=== PATIENT | female | born 2000 | race Caucasian/White ===

== ENCOUNTER 2022-09-02 09:37 | Outpatient (CLI) | payer MEDICAID, SELFPAY ==
--- NOTE | 2022-09-02 09:40 | W.PM.LAC.MC ---
Consult Note - Mom Date of Visit Date of visit: 09/02/22 food consultant: Chelsy Smith Visit Code: Visit Patient's Information Phone number: [phone] : 1 Para: 1 Work Plans: Returns to work at [employer] in October Delivery Information Delivery type: Vaginal Weeks Gestation: 39.3 Gestational Age: LGA Weight: 4.111 kg Discharge Weight: 3.657 kg Baby's Information Baby's Age at Visit: 8 days Baby's Provider or Clinic: Dr. Leung Jaundice: Yes (resolving) Reason for Consult Reason for Consult: pain with latching, using a nipple shield Past Experience Past Experience: No Current Frequency of Day Feedings: every 3 hours around the clock Both Breasts: No Suck: fairly strong Latch: fairly strong Length of Time: 15 - 25 minutes Pumping Pumping: Yes (uses the Haakaa on the side she doesn't nurse from) Quantity Pumped: 15 - 20 ml Supplementing EMB Supplement: Yes (baby gets 2 oz EBM or formula after every feeding) Formula Supplement: Yes Baby Elimination Number of Wet Diapers a Day: at least every feeding Number of BM a Day: at every feeding; yellow and seedy Breast/Nipple Condition Breast Information: WNL Engorgement: No Maternal Nipple Condition - Left: Flat Nipple Maternal Nipple Condition - Right: Flat Nipple Sore Nipples: No Onsite Pre-Feed weight: 3.846 kg Post-Feed weight: 3.868 kg Milk Transferred (mL): 22 Pre-Nursing Left Nipple: Within Normal Limits Pre-Nursing Right Nipple: Within Normal Limits Post-Nursing Left Nipple: Within Normal Limits Post-Nursing Right Nipple: Within Normal Limits Assessments/Interventions Assessments/Interventions: Met with mom and this now 8 day old ex- term LGA baby for consult.? Baby was born at [facility] but re-admitted to [facility] on 08/28 for PTX d/t an elevated bili of 18.0? During her admission mom nursed baby with a nipple shield and also supplemented with 2 oz formula after every nursing attempt.? Mom reports baby was seen on 08/31 and her TSB was WNL but she's still continued the same feeding plan.? She states that she nurses baby on one side while using the Haakaa on the other; gets 15 - 20 ml each time.? Reports that since D/C she's noticed a shooting pain up into her left axilla when baby nurses; has the same feeling with the pump but it's not as painful. Breasts WNL- rounded with symmetrical lower quadrants and the intramammary distance is < 1.5 inches.? Nipples are shorter but everted, flattening with compression; no damage noted.? Nipples are also not erythemic, scaly, or shiny.? Mom denies any signs of vasospasm, hx of milk blisters, or that nipples are itchy.? She reports the shooting pain she feels resolves after baby has finished nursing. Baby has gained 24 grams/day since her visit on 08/31 and is now 6% below BW at DOL 8.? Per mom she has equal ROM when turning her head and moving her extremities; she denies any caput/cephalohematoma at delivery.? Baby's palate is WNL.? Her upper frenulum is a little tight and her lower frenulum was a little hard to visualize.? She extends her tongue past the gum line when sucking on a finger and the tongue has good lateral movement.? She's jaundiced to her chest, but TSB on 08/31 = 13.9.? Mom attempted to latch baby to the left side without the nipple shield but was unsuccessful.? When she used the shield the latch seemed shallow and shortly after baby started suckling mom c/o shooting pain.? Baby was unlatched and with assistance mom latched her on again and it was deeper; mom reported increased comfort both at the nipple and up into her chest.? Baby nursed with stimulation for about 10 minutes and transferred 8 ml.? Mom then put baby on the right and using the ideas to get a deeper latch was able to get her on independently.? Baby nursed about 15 minutes and transferred 14 ml for a total of 22 ml.? Suspect the pain mom is feeling is d/t shallow latch. Plan: 1. Continue to nurse ALD but don't let her go past three hours for now.? Encouraged her to use the ideas above to get a wide latch, offer both sides at every feeding (keeping nursing sessions to no more than 30 minutes), work to keep her awake and nutritively suckling. 2. Stop using the Haakaa for now and pump with her electric (Medela) pump after as many feedings as possible (mom felt after every other feeding would work for her). 3. Continue to supplement after every feeding, but baby may need less than the 2 oz she was previously getting if mom offers both breasts at each nursing session. 4. F/U with PCP on 09/08 or 09/09 for a 2 week WCC.? I will f/u by phone on 09/12 to see if the pain with nursing has resolved.? Will also f/u after baby's 2 week visit to discuss weaning from the shield and a 1 month weight check. 5. Will fax note to Dr. High with the [facility]. 09/07/22 Addendum: Spoke with mom who states is going better- the pain she was having while nursing is resolving and she thinks it's b/c she's helping baby get a deeper latch. She's still using the nipple shield on the left but can sometimes nurse baby on the right without it. She's also pumping after nursing with her electric pump and thinks this is helping to increase her supply. She usually gets about 1 oz total and POC are giving this to baby. Will f/u with her by phone after baby's 2 week WCC next week to see if she'd like any f/u in .
== END 2022-09-02 09:38 | disposition home or self-care (01) ==
PROVIDERS: PCP Obstetrics & Gynecology; Visit Provider Obstetrics & Gynecology
DX: Z39.1 Encounter for care and examination of lactating mother (principal)
CPT/HCPCS: 99211

== ENCOUNTER 2022-11-10 23:58 | Emergency (ER) | payer MEDICAID, SELFPAY ==
[2022-11-11 00:17] VITALS: BP 130/87; PULSE 95; RESP 18; TEMP 36.7; O2SAT 99; BMI 36.3
--- NOTE | 2022-11-11 01:06 | CRLHL7_ITS ---
For Patients: As a result of the Century Cures Act, medical imaging exams and procedure reports are released immediately into your electronic medical record. You may view this report before your referring provider. If you have questions, please contact your health care provider. INDICATION: right upper quadrant pain TECHNIQUE: Ultrasound abdomen limited. Sonographic images of the right upper quadrant were obtained using loredo-scale and color Doppler images. COMPARISON: None FINDINGS: Study is limited due to large amount of overlying bowel gas. Liver: Suboptimal visualization normal in size and echotexture. No masses. No intrahepatic biliary dilatation. Gallbladder: No stones or sludge. Normal wall thickness. No pericholecystic fluid. Sonographic Patterson`s sign is positive. Common bile duct: 6 mm. Pancreas: Not visualized. Right kidney: Suboptimal visualization. Normal echotexture and cortex. No masses, stones, or hydronephrosis. Vasculature: Proximal abdominal aorta and IVC are normal. IMPRESSION: Limited study due to large amount of overlying bowel gas. No acute abnormality is identified although sonographic Patterson`s sign is positive. Dictated by Nicki Maldonado MD @ 11/11/2022 2:28:25 AM (Electronically Signed)
--- NOTE | 2022-11-11 01:09 | ED_ITS ---
HPI - Abdominal Pain General Chief Complaint: Abdominal Pain Stated Complaint: Abdominal Pain Time Seen by Provider: 11/11/22 00:05 Source: patient Mode of arrival: ambulatory Limitations: no limitations History of Present Illness HPI narrative: 21-year-old female, 2 months presents the emergency department with a 2 day history of abdominal pain. She did have a fever 2 days ago on, thought she might be getting a GI bug and tried taking some DayQuil. Rationale for that is unclear. Abdominal pain is located in the epigastric region initially, now more in the right upper quadrant, constant, dull and achy and is accompanied by nausea and vomiting. Last meal was 630 which is about 6 hours prior to presentation. She tried eating some chicken nuggets and caused increased nausea. Has not been using Tylenol, ibuprofen or other interventions to help with pain. Notes that hers started light colored, last bowel movement being about 12 hours ago. No blood in her stools, no prior history of similar symptoms. No prior known history of gallbladder disease. Positive family history of gallbladder disease. She is not breast-feeding. Past medical history benign per her report, no prior surgeries. No long-term medications, no allergies. Socially with no pertinent travel or toxic ingestion. ROS is notable for the generalized abdominal symptoms as above, otherwise negative times 15 systems. Related Data Home Medications Medication Instructions Recorded Confirmed No Known Home Medications 11/11/22 11/11/22 Allergies Allergy/AdvReac Type Severity Reaction Status Date / Time No Known Drug Allergies Allergy Verified 11/11/22 00:21 [facility] Medical History (Updated 11/11/22 @ 02:42 by Isabel Hawkins MD) No significant past medical history Surgical History (Updated 11/11/22 @ 01:19 by Ko Razo RN) No significant past surgical history Social History Smoking Status: Never smoker Do you use any of these nicotine containing products: None Second hand tobacco smoke exposure: No How often do you have a drink containing alcohol: never How often do you have six or more drinks on one occasion: Never AUDIT-C Alcohol total score: 0 Non-prescribed substance use: denies use Exam Const: Vital Signs, click to edit/add: Vital Signs - 24 hr 11/11/22 00:17 11/11/22 01:32 Temperature 98.0 F Pulse Rate 98 Pulse Rate [Right Pulse Oximeter] 95 Respiratory Rate 18 18 Blood Pressure 110/57 L Blood Pressure [Ri ght Upper Arm] 130/87 Pulse Oximetry 99 98 Oxygen Delivery Me thod Room Air Documenting provider has reviewed patient's vital signs: yes Common normals: no apparent distress General appearance: cooperative and comfortable HENMT: Common normals: normocephalic Head and scalp: normocephalic Mouth: oral and palatal mucosa normal Throat: posterior oropharynx normal Eye: Common normals: conjunctivae normal General eye: normal appearance of both eyes Conjunctiva: conjunctiva(e) normal Neck & C-Spine: Common normals: no lymphadenopathy Resp: Common normals: normal respiratory effort, no use of accessory muscles and clear to auscultation bilaterally Effort & inspection: able to speak in complete sentences Auscultation: clear to auscultation bilaterally Cardio: Common normals: regular rate, regular rhythm, S1 normal heart sound, S2 normal heart sound and no murmurs Rate: regular rate Rhythm: regular rhythm Heart sounds: S1 normal and S2 normal GI: Other: Abdomen obese but soft. Appears nondistended. Bowel sounds are normoactive in all 4 quadrants. Moderately tender with no guarding to the right upper quadrant only. No mass. : Common normals: no CVA tenderness Bladder/kidney exam: no CVA tenderness Back & Pelvis: Common normals: no CVA tenderness Extremity: Common normals: normal to inspection and normal capillary refill Psych: Common normals: mental status grossly normal, thought process normal and cooperative Thought process: normal thought process Insight: insight good Skin: Common normals: no rashes or lesions noted General skin exam: no rashes or lesions noted Course Vital Signs Vital signs: Initial Vital Signs Temperature 98.0 F 11/11/22 00:17 Temperature Source Temporal Artery Scan 11/11/22 00:17 Pulse Rate 95 11/11/22 00:17 Respiratory Rate 18 11/11/22 00:17 Blood Pressure 130/87 11/11/22 00:17 Blood Pressure Mean 101 11/11/22 00:17 Blood Pressure Position Supine 11/11/22 00:17 Pulse Oximetry 99 11/11/22 00:17 Oxygen Delivery Method 11/11/22 00:17 Vital Signs Temperature 98.0 F 11/11/22 00:17 Pulse Rate 95 11/11/22 00:17 Respiratory Rate 18 11/11/22 00:17 Blood Pressure 130/87 11/11/22 00:17 Pulse Oximetry 99 11/11/22 00:17 Oxygen Delivery Method 11/11/22 00:17 Temperature 98.0 F 11/11/22 00:17 Pulse Rate 98 11/11/22 01:32 Respiratory Rate 18 11/11/22 01:32 Blood Pressure 110/57 L 11/11/22 01:32 Pulse Oximetry 98 11/11/22 01:32 Oxygen Delivery Method 11/11/22 00:17 MDM - Abdominal Pain MDM Narrative Medical decision making narrative: Differential diagnosis including pancreatitis, gastroenteritis, gallbladder disease, colitis, gallstones, gastritis. Most likely etiology is cholecystitis based on nausea vomiting fever and localized tenderness. Counseled patient on differential diagnosis. Recommend ultrasound, labs. IV will be placed Zofran and morphine will be given for pain. Awaiting results, will likely need surgical consult if cholecystitis. Update: Labs are reassuring. Pain and nausea did improve with interventions. Discussed possibility of biliary dyskinesia. Since there is no significant elevation in bilirubin, no abnormal pancreatic enzymes, leukocytosis or markedly elevated CRP, I do not recommend further workup at this time. Recommend bland diet, episode will likely be self limited. Did give a single dose of simethicone to see if this would also help with symptoms. Alarm symptoms reviewed as indications for further workup. Recommend conservative management for now and follow-up for HIDA scan if symptoms persist. Okay to use Tylenol and/or ibuprofen as needed. Lab Data Attestation: I reviewed the patient's lab results. Labs: Lab Results 11/11/22 11/11/22 11/11/22 Range/Units 01:06 01:12 01:12 WBC 9.85 (4.50-11.00) K/uL RBC 5.00 (4.00-5.20) m/uL Hgb 14.1 (12.0-16.0) gm/dL Hct 43.0 (33.0-51.0) % MCV 86 (80-100) fL MCH 28 (26-34) pg MCHC 33 (32-36) gm/dL RDW Coeff of Martin 13.0 (11.5-15.5) % Plt Count 334 (140-440) K/uL Neut % (Auto) 58.3 (42.0-72.0) % Lymph % (Auto) 26.7 (20-44) % Dauphin % (Auto) 9.6 (0.0-11.0) % Eos % (Auto) 5.1 (0.0-7.0) % Baso % (Auto) 0.1 (0.0-3.0) % Neut # (Auto) 5.74 (1.7-7.0) K/uL Lymph # (Auto) 2.63 (0.90-2.90) K/uL Dauphin # (Auto) 0.90 (0.00-0.90) K/UL Eos # (Auto) 0.50 (0.00-0.50) K/uL Baso # (Auto) 0.01 (0.00-0.30) K/uL Sodium 143 (135-149) mmol/L Potassium 4.0 (3.6-5.1) mmol/L Chloride 106 (96-114) mmol/L Carbon Dioxide 27 (20-32) mmol/L BUN 13 (5-24) mg/dL Creatinine 0.6 (0.5-1.5) mg/dL Estimated Creat Clear 140.01 Estimated GFR 132 ml/min Glucose 99 (60-115) mg/dL Calcium 9.4 (8.4-10.6) mg/dL Total Bilirubin 0.6 (0.1-1.5) mg/dL AST 30 (12-35) U/L ALT 42 H (4-35) U/L Alkaline Phosphatase 96 (40-150) U/L C-Reactive Protein 1.2 H (0.5-1.0) mg/dL Total Protein 7.7 (6.0-8.3) g/dL Albumin 4.8 (3.3-5.0) g/dL Lipase 94 (23-300) U/L HCG, Qual (Negative) SARS-CoV-2 (PCR) Negative SARS-CoV-2 (Negative) 11/11/22 Range/Units 01:16 WBC (4.50-11.00) K/uL RBC (4.00-5.20) m/uL Hgb (12.0-16.0) gm/dL Hct (33.0-51.0) % MCV (80-100) fL MCH (26-34) pg MCHC (32-36) gm/dL RDW Coeff of Martin (11.5-15.5) % Plt Count (140-440) K/uL Neut % (Auto) (42.0-72.0) % Lymph % (Auto) (20-44) % Dauphin % (Auto) (0.0-11.0) % Eos % (Auto) (0.0-7.0) % Baso % (Auto) (0.0-3.0) % Neut # (Auto) (1.7-7.0) K/uL Lymph # (Auto) (0.90-2.90) K/uL Dauphin # (Auto) (0.00-0.90) K/UL Eos # (Auto) (0.00-0.50) K/uL Baso # (Auto) (0.00-0.30) K/uL Sodium (135-149) mmol/L Potassium (3.6-5.1) mmol/L Chloride (96-114) mmol/L Carbon Dioxide (20-32) mmol/L BUN (5-24) mg/dL Creatinine (0.5-1.5) mg/dL Estimated Creat Clear Estimated GFR ml/min Glucose (60-115) mg/dL Calcium (8.4-10.6) mg/dL Total Bilirubin (0.1-1.5) mg/dL AST (12-35) U/L ALT (4-35) U/L Alkaline Phosphatase (40-150) U/L C-Reactive Protein (0.5-1.0) mg/dL Total Protein (6.0-8.3) g/dL Albumin (3.3-5.0) g/dL Lipase (23-300) U/L HCG, Qual Negative (Negative) SARS-CoV-2 (PCR) (Negative) Imaging Data Abdominal ultrasound: My impression: No obvious obstructing stones or thickened gallbladder wall but difficult study due to bowel gas Radiologist's impression: IMPRESSION: Limited study due to large amount of overlying bowel gas. No acute abnormality is identified although sonographic Patterson`s sign is positive. Discharge Plan Discharge Clinical Impression: Abdominal gas pain Patient Disposition: Home w/ Parent or Adult Condition: Improved Instructions: Gas and Bloating (ED) Additional Instructions: As we discussed, I still think that your pain could be related to your gallbladder. There were no signs of a gallbladder infection or a gallstone today. These are the most emergent problems. A more common problem is something called biliary dyskinesia which is a malfunctioning gallbladder. These can be very common especially after childbirth but tend to resolve on their own. Try to avoid fatty foods for the next few weeks. If you continue to have episodes, please see your primary care doctor and request a HIDA scan. This can help us look at the gallbladder function more closely. For most people, these episodes resolved with no further problems. We do see a lot of gas on the ultrasound, this could certainly explain your symptoms too. I have given you a dose of gas medication, this is available [id number] as well. This will help break up some of the bubbles and allow you to pass the more easily. It is okay to take Tylenol and/or ibuprofen for pain as well. Eat a soft, bland diet and avoid alcohol for the next few days. Drink plenty of fluids. If you start running high fevers, and or your pain worsens significantly, please come back to the emergency department. Since there were no signs of infection, liver abnormalities or pancreas abnormalities in your blood work, this is all very reassuring. Activity Level: No Restrictions Discharge Diet: Regular Prescriptions: No Action No Known Home Medications Follow Up/Referrals: Jennifer Salgado MD [Staff Physician] - Stand Alone Forms: [employer] Info Instructions
[2022-11-11] MEDS: ONDANSETRON 2 MG/ML inj 4 MG IVP (01:15)
[2022-11-11] MEDS: MORPHINE 4 MG/ML INJ IVP (01:17)
[2022-11-11 01:20] VITALS: O2SAT 98
[2022-11-11 01:28] LABS: Basophils Absolute Auto 0.01 K/uL (0.00-0.30); Basophils Percent Auto 0.1 % (0.0-3.0); Eosinophils Percent Auto 5.1 % (0.0-7.0); Hemoglobin* 14.1 gm/dL (12.0-16.0); Immature Granulocytes Abs Auto 0.02 K/uL (0.00-0.30); Immature Granulocytes Pct Auto 0.2 %; Lymphocytes Absolute Auto 2.63 K/uL (0.90-2.90); Lymphocytes Percent Auto 26.7 % (20-44); Mean Corpuscular HGB Conc 33 gm/dL (32-36); Mean Corpuscular Hemoglobin 28 pg (26-34); Mean Corpuscular Volume 86 fL (80-100); Monocytes Percent Auto 9.6 % (0.0-11.0); Neutrophils Absolute Auto 5.74 K/uL (1.7-7.0); Neutrophils Percent Auto 58.3 % (42.0-72.0); Platelet Count* 334 K/uL (140-440); White Blood Count* 9.85 K/uL (4.50-11.00)
[2022-11-11 01:32] VITALS: BP 110/57; PULSE 98; RESP 18; O2SAT 98
[2022-11-11 01:32] LABS: Slide Review Reflex No
[2022-11-11 01:41] LABS: Albumin* 4.8 g/dL (3.3-5.0); Chloride* 106 mmol/L (96-114); Sodium* 143 mmol/L (135-149)
[2022-11-11 01:44] LABS: Bilirubin Total* 0.6 mg/dL (0.1-1.5); Creatinine* 0.6 mg/dL (0.5-1.5); Est. Creatinine Clearance* 140.01; Estimated Glomerular Filt Rate 132 ml/min
[2022-11-11 01:45] LABS: Alanine Aminotransferase* 42 U/L (4-35); Alkaline Phosphatase* 96 U/L (40-150); Aspartate Amino Transferase* 30 U/L (12-35); Blood Urea Nitrogen* 13 mg/dL (5-24); Calcium* 9.4 mg/dL (8.4-10.6); Carbon Dioxide* 27 mmol/L (20-32); Glucose* 99 mg/dL (60-115); Lipase* 94 U/L (23-300); Total Protein* 7.7 g/dL (6.0-8.3)
[2022-11-11 01:48] LABS: C Reactive Protein* 1.2 mg/dL (0.5-1.0)
[2022-11-11 01:54] LABS: HCG Qualitative Serum* Negative (Negative)
[2022-11-11 02:01] VITALS: BP 113/80; PULSE 99; RESP 18; O2SAT 96
[2022-11-11 02:05] LABS: SARS PCR* Negative SARS-CoV-2 (Negative)
[2022-11-11] MEDS: SIMETHICONE 80 MG TAB.CHEW 160 MG PO (02:09)
[2022-11-11 02:32] VITALS: BP 114/72; PULSE 88; RESP 18; O2SAT 98
[2022-11-11 02:53] VITALS: BP 130/87; PULSE 95; RESP 18; TEMP 36.7
== END 2022-11-11 02:53 | disposition home or self-care (01) ==
PROVIDERS: Emergency Provider Family Medicine
DX: R14.1 Gas pain (principal); R10.9 Unspecified abdominal pain
CPT/HCPCS: 36415; 76705; 80053; 83690; 84703; 85025; 86140; 87635; 94761; 96374; 96375; 99283; 99284; A9270; J2270; J2405

== ENCOUNTER 2023-01-27 16:33 | Outpatient (CLI) | payer MEDICAID, SELFPAY | END 2023-01-27 16:34 | disposition home or self-care (01) | PROVIDERS: Visit Provider Registered Nurse | DX: Z01.419 Encounter for gynecological examination (general) (routine) without abnormal findings (principal); E66.9 Obesity, unspecified; R53.83 Other fatigue; R63.5 Abnormal weight gain; F41.9 Anxiety disorder, unspecified; N91.2 Amenorrhea, unspecified; R45.86 Emotional lability; Z13.6 Encounter for screening for cardiovascular disorders; Z13.1 Encounter for screening for diabetes mellitus | CPT/HCPCS: 80061; 82306; 82670; 82947; 83001; 83498; 84146; 84403; 84443; 84703 ==

== ENCOUNTER 2024-09-23 12:02 | Outpatient (CLI) | payer MEDICAID, SELFPAY ==
--- NOTE | 2024-09-23 12:15 | CRLHL7_ITS ---
For Patients: As a result of the Cures Act, medical imaging exams and procedure reports are released immediately into your electronic medical record. You may view this report before your referring provider. If you have questions, please contact your health care provider. INDICATION: First trimester scan, establish dates. COMPARISON: None. TECHNIQUE: Real-time loredo-scale imaging of the pelvis was performed. FINDINGS: Sonographic imaging demonstrates a single living intrauterine gestation. The embryo demonstrates a regular cardiac rate measuring 178 beats per minute. The embryo`s crown-rump length measurement of 2.3 cm corresponds to a gestational age of 9 weeks 0 days with a sonographic due date of 04/28/2025. There is a normal-appearing yolk sac. There are no gross abnormalities noted within the embryo at this early state of development. The gestational sac has a normal appearance. There is no evidence of a perigestational hemorrhage. The amount of fluid within the sac appears appropriate for gestational age. The cervix is closed. The myometrium appears normal. The ovaries are of normal size. Corpus luteal cyst right ovary measures 2.9 x 2.3 x 2.7 cm. There are no suspicious fluid collections noted in the cul-de-sac. IMPRESSION: Normal first trimester OB ultrasound exam. Gestational age calculated at 9 weeks 0 days with a sonographic due date of 04/28/2025. Dictated by Dio Flynn MD @ 09/23/2024 12:53:25 PM (Electronically Signed)
== END 2024-09-23 12:03 | disposition home or self-care (01) ==
LOC: US 12:02
PROVIDERS: Visit Provider Physician Assistant
DX: Z34.91 Encounter for supervision of normal pregnancy, unspecified, first trimester (principal); Z3A.09 9 weeks gestation of pregnancy
CPT/HCPCS: 76817

== ENCOUNTER 2024-09-23 13:40 | Outpatient (CLI) | payer MEDICAID, SELFPAY | END 2024-09-23 13:41 | disposition home or self-care (01) | PROVIDERS: Visit Provider Advanced Practice Midwife | DX: Z34.91 Encounter for supervision of normal pregnancy, unspecified, first trimester (principal); Z3A.09 9 weeks gestation of pregnancy | CPT/HCPCS: 86592; 86703; 86704; 86706; 86762; 86787; 86803; 86850; 86900; 86901; 87086; 87340 ==

== ENCOUNTER 2024-12-05 09:00 | Outpatient (CLI) | payer MEDICAID, SELFPAY | END 2024-12-05 09:01 | disposition home or self-care (01) | LOC: US 09:01 | PROVIDERS: Visit Provider Advanced Practice Midwife | DX: Z34.92 Encounter for supervision of normal pregnancy, unspecified, second trimester (principal); O35.BXX0 Maternal care for other (suspected) fetal abnormality and damage, fetal cardiac anomalies, not applicable or unspecified; O35.8XX0 Maternal care for other (suspected) fetal abnormality and damage, not applicable or unspecified; Z3A.20 20 weeks gestation of pregnancy | CPT/HCPCS: 76805 ==

== ENCOUNTER 2024-12-19 09:00 | Outpatient (CLI) | payer MEDICAID, SELFPAY | END 2024-12-19 09:01 | disposition home or self-care (01) | LOC: US 09:02 | PROVIDERS: Visit Provider Midwife | DX: O99.212 Obesity complicating pregnancy, second trimester (principal); E66.9 Obesity, unspecified; Z3A.20 20 weeks gestation of pregnancy | CPT/HCPCS: 76816 ==

== ENCOUNTER 2025-01-09 11:45 | Outpatient (CLI) | payer MEDICAID, SELFPAY | END 2025-01-09 11:46 | disposition home or self-care (01) | LOC: NFLDREF 01-11 04:06 | PROVIDERS: Visit Provider Advanced Practice Midwife | DX: O26.892 Other specified pregnancy related conditions, second trimester (principal); R10.2 Pelvic and perineal pain; O99.212 Obesity complicating pregnancy, second trimester; Z3A.25 25 weeks gestation of pregnancy | CPT/HCPCS: 87086 ==

== ENCOUNTER 2025-02-06 09:58 | Outpatient (CLI) | payer MEDICAID, SELFPAY | END 2025-02-06 09:59 | disposition home or self-care (01) | LOC: NFLDREF 09:59 | PROVIDERS: Visit Provider Advanced Practice Midwife | DX: Z34.83 Encounter for supervision of other normal pregnancy, third trimester (principal); R82.90 Unspecified abnormal findings in urine | CPT/HCPCS: 86592; 87086 ==

== ENCOUNTER 2025-02-12 08:33 | Outpatient (CLI) | payer MEDICAID, SELFPAY | END 2025-02-12 08:34 | disposition home or self-care (01) | LOC: NFLDREF 02-17 02:48 | PROVIDERS: Visit Provider Advanced Practice Midwife | DX: O99.810 Abnormal glucose complicating pregnancy (principal) | CPT/HCPCS: 82951; 82952 ==

== ENCOUNTER 2025-02-25 13:50 | Outpatient (CLI) | payer MEDICAID, SELFPAY ==
--- NOTE | 2025-02-25 14:00 | CRLHL7_ITS ---
For Patients: As a result of the Cures Act, medical imaging exams and procedure reports are released immediately into your electronic medical record. You may view this report before your referring provider. If you have questions, please contact your health care provider. OBSTETRICAL ULTRASOUND ???BIOPHYSICAL PROFILE, 02/25/2025 INDICATION: Gestational diabetes mellitus. CLINICAL HISTORY: LMP: 07/18/2024 CELSA by LMP: 04/24/2025 Gestational Age: 31 weeks 5 days COMPARISON: 12/19/2024, 12/05/2024, 09/23/2024 TECHNIQUE: Real-time loredo-scale imaging of the fetus was performed transabdominal. FINDINGS: Fetus: Single Cervix: Not visualized positioning: Vertex Amniotic Fluid: 5.3 cm SDP Placenta technique: Transabdominal Placenta position: Anterior heart rate: 152 bpm BIOMETRY: BPD: 8.3 cm, 33 weeks 1 day, 81.8% HC: 29.8 cm, 33 weeks 0 days, 48.9% AC: 27.6 cm, 31 weeks 4 days, 44.9% FL: 6.1 cm, 31 weeks 4 days, 34.2% FL/AC Ratio: 22.1% HC/AC ratio: 1.1 EFW: 1859 grams; 4 lbs. 2 oz. age by this ultrasound: 32 weeks 2 days CELSA by this ultrasound: 04/20/2025 Percentile by CELSA: 44.2% IMPRESSION: 1. Sonographic gestational age 32 weeks 2 days and sonographic due date 04/20/2025. Sonographic age is 4 days ahead of the clinical age. 2. Estimated weight is 44th percentile. Abdominal circumference is 45th percentile. DIO RAYGOZA M.D. Diagnostic Radiologist [email or web address] Transcribed: 4:[address]/Dictated by: Dio Raygoza MD @ 02/25/2025 3:26:00 PM (Electronically Signed)
== END 2025-02-25 13:51 | disposition home or self-care (01) ==
LOC: US 13:50
PROVIDERS: Visit Provider Midwife
DX: O24.410 Gestational diabetes mellitus in pregnancy, diet controlled (principal); Z3A.32 32 weeks gestation of pregnancy
CPT/HCPCS: 76816

== ENCOUNTER 2025-03-25 07:53 | Outpatient (CLI) | payer MEDICAID, SELFPAY ==
--- NOTE | 2025-03-25 08:15 | CRLHL7_ITS ---
For Patients: As a result of the Century Cures Act, medical imaging exams and procedure reports are released immediately into your electronic medical record. You may view this report before your referring provider. If you have questions, please contact your health care provider. OBSTETRICAL ULTRASOUND ??? FOLLOW-UP, 03/25/2025 INDICATION: Gestational diabetes mellitus. Follow-up growth. CLINICAL HISTORY: CELSA by LMP: 04/24/2025 Gestational Age: 35 weeks 5 days COMPARISON: 02/25/2025, 12/19/2024, 12/05/2024 TECHNIQUE: Real-time loredo-scale transabdominal imaging of the fetus was performed. FINDINGS: Fetus: Single Cervix: Not visualized positioning: Vertex Amniotic Fluid: 5.9 cm SDP Placenta technique: Transabdominal Placenta position: Anterior heart rate: 147 bpm BIOMETRY: BPD: 9.3 cm, 38 weeks 0 days, 97% HC: 33.9 cm, 39 weeks 0 days, 90% AC: 31.2 cm, 35 weeks 1 day, 42% FL: 7.1 cm, 36 weeks 2 days, 61% FL/AC Ratio: 22.72% HC/AC ratio: 1.09 EFW: 2862 grams; 6 lbs. 5 oz. age by this ultrasound: 37 weeks 1 day CELSA by this ultrasound: 04/14/2025 Percentile by CELSA: 63% IMPRESSION: 1. Sonographic gestational age 37 weeks 1 day and sonographic due date 04/14/2025. Sonographic age is 10 days ahead of the clinical age. 2. Estimated weight is 63rd percentile. Abdominal circumference is 42nd percentile. DIO RAYGOZA M.D. Diagnostic Radiologist [email or web address] Transcribed: 1:[address]/Dictated by: Dio Raygoza MD @ 03/25/2025 10:17:00 AM (Electronically Signed)
== END 2025-03-25 07:54 | disposition home or self-care (01) ==
LOC: US 07:54
PROVIDERS: Visit Provider Midwife
DX: O24.410 Gestational diabetes mellitus in pregnancy, diet controlled (principal); O36.63X0 Maternal care for excessive fetal growth, third trimester, not applicable or unspecified; Z3A.35 35 weeks gestation of pregnancy
CPT/HCPCS: 76816; 87081; 87653

== ENCOUNTER 2025-04-01 12:03 | Outpatient (CLI) | payer MEDICAID, SELFPAY ==
--- NOTE | 2025-04-01 12:15 | CRLHL7_ITS ---
For Patients: As a result of the Cures Act, medical imaging exams and procedure reports are released immediately into your electronic medical record. You may view this report before your referring provider. If you have questions, please contact your health care provider. OB ULTRASOUND LMP: 07/18/2024. CELSA by LMP: 04/24/2025. GA: 36 w, 5 d. Single. INDICATION: GDMA2. TECHNIQUE: Real time grayscale imaging of the fetus was performed. Transabdominal. CERVIX: Not visualized. POSITIONING: Vertex. AMNIOTIC FLUID: NURYS: 20.0 cm. SDP (N: greater than 2 x 1 cm) 7.9 cm. BIOPHYSICAL PROFILE: 2: Gross body movements 2: tone 2: Respiratory activity 2: Amniotic fluid SDP (N: greater than 2 x 1 cm) 8/8: Total score PLACENTA: Technique: Transabdominal. PLACENTA POSITION: Anterior, left wall. DOPPLER: heart rate: 154 bpm. IMPRESSION: 1. Normal biophysical profile score 8/8. 2. Amniotic fluid single deepest pocket 7.9 cm. NURYS 20.0 cm. Dio Flynn M.D. Diagnostic Radiologist [email or web address] RANDALL/[email or web address] jara/Dictated by: Dio Flynn MD @ 04/01/2025 3:48:00 PM (Electronically Signed)
== END 2025-04-01 12:04 | disposition home or self-care (01) ==
LOC: US 12:04
PROVIDERS: Visit Provider Physician Assistant
DX: O24.419 Gestational diabetes mellitus in pregnancy, unspecified control (principal); Z3A.36 36 weeks gestation of pregnancy
CPT/HCPCS: 76819

== ENCOUNTER 2025-04-03 13:39 | Outpatient (CLI) | payer MEDICAID, SELFPAY ==
--- NOTE | 2025-04-03 13:45 | CRLHL7_ITS ---
For Patients: As a result of the Cures Act, medical imaging exams and procedure reports are released immediately into your electronic medical record. You may view this report before your referring provider. If you have questions, please contact your health care provider. OB ULTRASOUND BIOPHYSICAL PROFILE, 04/03/2025 CLINICAL HISTORY: Non-reactive NST. COMPARISON: 04/01/2025. TECHNIQUE: Real time loredo scale imaging of the fetus was performed. Transabdominal imaging performed. FINDINGS: LMP: 07/18/2024. CELSA by LMP: 04/24/2025. GA: 37 weeks 0 days. GESTATION: Single. SURGERY: No. CERVIX: Not visualized. POSITIONING: Vertex. AMNIOTIC FLUID: 18.0 cm NURYS. 8.3 cm SDP. BIOPHYSICAL PROFILE: Gross Body Movements: 2 Tone: 2 Respiratory Activity: 2 Amniotic Fluid SDP: 2 Total Score: 8/8 PLACENTA: Technique: TA. Placenta Position: Anterior. DOPPLERS: Heart Rate: 159 bpm. IMPRESSION: 1. Normal biophysical profile score 8/8. 2. Amniotic fluid single deepest pocket 8.3 cm. NURYS 18.0 cm. Dio Flynn M.D. Diagnostic Radiologist [email or web address] Transcribed: 8:58 am DW/Dictated by: Dio Flynn MD @ 04/04/2025 7:11:00 AM (Electronically Signed)
== END 2025-04-03 13:40 | disposition home or self-care (01) ==
LOC: US 13:40
PROVIDERS: Visit Provider Obstetrics & Gynecology
DX: O24.419 Gestational diabetes mellitus in pregnancy, unspecified control (principal); Z3A.37 37 weeks gestation of pregnancy
CPT/HCPCS: 76819

== ENCOUNTER 2025-04-08 09:03 | Outpatient (CLI) | payer MEDICAID, SELFPAY ==
--- NOTE | 2025-04-08 09:15 | CRLHL7_ITS ---
For Patients: As a result of the Century Cures Act, medical imaging exams and procedure reports are released immediately into your electronic medical record. You may view this report before your referring provider. If you have questions, please contact your health care provider. INDICATION: Gestational diabetes TECHNIQUE: Ultrasound OB pelvis transabdominal. Real-time loredo-scale imaging of the fetus was performed with color Doppler and spectral Doppler analysis of the umbilical artery without stress testing. COMPARISON: 04/03/2025 FINDINGS: Sonographic imaging demonstrates a single living intrauterine gestation. Fetus demonstrates a regular cardiac rate of 147 beats per minute. Fetus has a cephalic orientation. The placenta lies anterior. Amniotic fluid volume appears normal with an NURYS of 19.8 cm. breathing movements, motion, and tone were all observed. IMPRESSION: Single viable intrauterine with a biophysical profile 8/8. Amniotic fluid index of 19.8 centimeters. Dictated by Keven Monreal MD @ 04/08/2025 10:08:52 AM (Electronically Signed)
== END 2025-04-08 09:04 | disposition home or self-care (01) ==
LOC: US 09:04
PROVIDERS: Visit Provider Physician Assistant
DX: O24.419 Gestational diabetes mellitus in pregnancy, unspecified control (principal)
CPT/HCPCS: 36415; 59025; 76819; 82565; 82570; 84156; 84450; 84460; 84520; 85027; G0463

== ENCOUNTER 2025-04-10 15:16 | Outpatient (CLI) | payer MEDICAID, SELFPAY ==
--- NOTE | 2025-04-10 14:45 | CRLHL7_ITS ---
For Patients: As a result of the Cures Act, medical imaging exams and procedure reports are released immediately into your electronic medical record. You may view this report before your referring provider. If you have questions, please contact your health care provider. OB ULTRASOUND BIOPHYSICAL PROFILE LMP: 07/18/2024. CELSA by LMP: 04/24/2025. GA: 38 w, 0 d. Single. Comparison: 04/08/2025, 04/03/2025, 04/01/2025. INDICATION: Non-reactive NST. TECHNIQUE: Real time loredo scale imaging of the fetus was performed. POSITIONING: Vertex. AMNIOTIC FLUID: 6.8 cm. SDP (N: greater than 2 x 1 cm) BIOPHYSICAL PROFILE: Total score: 2. Gross body movements: 2. tone: 2. Respiratory activity: 2. Amniotic fluid: 2. (SDP N: greater than 2 x 1 cm) Total score: 8 PLACENTA: Technique: Transabdominal. PLACENTA POSITION: Anterior, Left Wall. DOPPLER: heart rate: 148 bpm. IMPRESSION: 1. Normal biophysical profile 06/13. 2. Funneling of the internal cervical os. Normal amniotic fluid with single deepest pocket 6.8 cm. Dio Flynn M.D. Diagnostic Radiologist [email or web address] RANDALL/[email or web address] JR/Dictated by: Dio Flynn MD @ 04/14/2025 6:01:00 AM (Electronically Signed)
== END 2025-04-10 15:17 | disposition home or self-care (01) ==
PROVIDERS: Visit Provider Obstetrics & Gynecology
DX: O36.8330 Maternal care for abnormalities of the fetal heart rate or rhythm, third trimester, not applicable or unspecified (principal); Z3A.38 38 weeks gestation of pregnancy
CPT/HCPCS: 76819

== ENCOUNTER 2025-04-15 12:51 | Outpatient (CLI) | payer MEDICAID, SELFPAY ==
--- NOTE | 2025-04-15 13:00 | CRLHL7_ITS ---
For Patients: As a result of the Cures Act, medical imaging exams and procedure reports are released immediately into your electronic medical record. You may view this report before your referring provider. If you have questions, please contact your health care provider. OBSTETRICAL ULTRASOUND ??? BIOPHYSICAL PROFILE, 04/15/2025 INDICATION: GDMA2. CLINICAL HISTORY: LMP: 07/18/2024 CELSA by LMP: 04/24/2025 Gestational Age: 38 weeks 0 days COMPARISON: 04/10/2025, 04/08/2025, 04/03/2025. TECHNIQUE: Real-time loredo-scale transabdominal imaging of the fetus was performed. FINDINGS: Fetus: Single Cervix: Not visualized positioning: Vertex Amniotic Fluid: NURYS: 18.3 cm 7.0 cm SDP BIOPHYSICAL PROFILE: Gross body movements: 2 tone: 2 Respiratory activity: 2 Amniotic fluid SDP: 2 Total score: 8 Placenta position: Anterior, left wall heart rate: 142 bpm IMPRESSION: Normal biophysical profile score of 8/8. DIO RAYGOZA M.D. Diagnostic Radiologist [email or web address] Transcribed: 10:[address]/Dictated by: Dio Raygoza MD @ 04/16/2025 6:32:00 AM (Electronically Signed)
== END 2025-04-15 12:52 | disposition home or self-care (01) ==
LOC: US 12:51
PROVIDERS: Visit Provider Physician Assistant
DX: O24.419 Gestational diabetes mellitus in pregnancy, unspecified control (principal); Z3A.38 38 weeks gestation of pregnancy
CPT/HCPCS: 76819

== ENCOUNTER 2025-04-16 16:29 | Inpatient (IN) | payer MEDICAID, SELFPAY ==
[2025-04-16] VITALS (8 sets, daily range): BP systolic 120–140; BP diastolic 60–94; PULSE 8–122; RESP 16–20; TEMP 36.6–36.9; O2SAT 81–99; BMI 43.9
--- NOTE | 2025-04-16 16:45 | P.OBHP_ITS ---
OB - H&P: HPI Labor/Induction History of Present Illness Time Seen by Provider: 17:54 Date Seen: 04/16/25 Chief complaint: Induction Narrative: The patient is a 24 year old 2 para 1 at 38w6d GA by LMP, who presents for scheduled induction of labor. is complicated by GDM A2 (on 18 units NPH insulin at bedtime), elevated blood pressure without diagnosis of hypertension, obesity. Detailed H and P was completed by Dr. Zhao on 04/01, please see this for complete details. Patient is feeling well today with no acute concerns. Denies any regular/painful uterine contractions or leaking of fluid. She has had scant bloody show today. Sources active movement. Denies headache, vision changes or right upper quadrant pain. She had her 1st elevated blood pressure on arrival today, pre E labs pending. Specific Issues/Plans :Claudio H&P Dr. Zhao 04/01 #GDMA2: Insulin start 03/25/25-Transfer to MD care Failed 1 hr GTT-191; 3 hr GTT: 94, 214, 163, 159 Nutrition consult?-02/18/25 Twice weekly testing starting at 32w-February is filling out form Diabetic Education with 03/25/25: 18 U NPH Twice weekly testing: BPP alternating with NST. Growth US every 4 weeks starting at 32 weeks??-ordered 32 week: 44.2%ile 36 week: EFW 63%, HC 90%, SDP 5.9 #Hx of macrosomia 1st child 9lb 1oz #Pre BMI 36: Weekly testing starting at 37 weeks?- changed to 2x/week as started on insulin on 03/25/25. Consider growth US at 32 weeks?-see above Delivery recommended: elective delivery considered at >39 0/7 weeks.? # Elevated BP on 04/08/25 Serial BP in the Center all under 140/90 Preeclampsia labs normal, urine P/C = 0.24 Imaging: * 1st tri-09/23/2025-Normal first trimester OB ultrasound exam. Gestational age calculated at 9 weeks 0 days with a sonographic due date of 04/28/2025. * Anatomy US- v012/05/2024 Normal findings, but many suboptimal views. Anterior placenta. Follow up scheduled in 2-4w. * Follow-up growth 02/25/2025: IMPRESSION: 1.Sonographic gestational age 32 weeks 2 days and sonographic due date 04/20/2025. Sonographic age is 4 days ahead of the clinical age. 2.Estimated weight is 44th percentile. Abdominal circumference is 45th percentile. * 03/25/25 EFW 63% with HC 90%, difficult measurements due to position. Vertex. SDP 5.9 COVID:?? Flu:?? Tdap:??03/25/25 Hep B: non-immune, stay at home, if had initial series no repeat indicated 32wk Mental Health:?02/20/25 GBS negative Meds Home Medications and Allergies Home Medications ?Medication ?Instructions ?Recorded ?Confirmed ?Type docosahexaenoic acid 200 mg 200 mg PO DAILY 09/23/24 0 04/16/25 History capsule ( DHA) Blood Glucose Meter #1 02/13/25 04/16/25 Rx Test Strips #200 02/13/25 04/16/25 Rx lancets #200 02/13/25 04/16/25 Rx alcohol swabs (Alcohol Pads) 2 pad topical DAILY #100 ea 03/25/25 04/16/25 Rx insulin NPH isoph U-100 human 100 18 unit (0.18 mL) cain bcut .hs #30 mL 03/25/25 04/16/25 Rx unit/mL subcutaneous suspension (Humulin N NPH U-100 Insulin (isophane susp)) insulin syringe-needle U-100 1 mL #100 03/25/2509/30 Rx 30 gauge x 5/16 (Sure Comfort Insulin Syringe) Allergies Allergy/AdvReac Type Severity Reaction Status Date / Time No Known Drug Allergies Allergy Verified 04/16/25 16:51 OB - H&P: Exam Physical Exam: Vital signs: Temp Pulse Resp BP Pulse Ox 97.8 F 122 H 16 138/94 H 99 04/16/25 16:38 04/16/25 16:41 04/16/25 16:38 04/16/25 16:41 04/16/25 16:43 Narrative: General: Alert and oriented, no acute distress Psych: Appropriate mood and affect Abdomen: Gravid. NST: Reactive. Baseline of 140 beats per minute, moderate variability, 15x15 accelerations present, decelerations absent. [place]: Contractions every 2-6 minutes, nonpainful by patient report Cervix: 2cm and stretchy/50/-3 OB - Problem Based A/P Additional Plan (1) Elevated blood pressure reading without diagnosis of hypertension: Status: Acute (2) Gestational diabetes mellitus, class A2: Status: Acute (3) Supervision of high risk in third trimester: Status: Acute (4) Obesity affecting , antepartum: Status: Acute Plan Stephanie is a 24yo at 38w6d GA ongoing IOL for GDMA2. is otherwise complicated by elevated blood pressure without diagnosis of hypertension and obesity. - Cervix is 2cm and stretchy, 50/-3. Cook catheter was placed without difficulty, 60cc instilled in both balloons. - Discussed low-dose Pitocin titration overnight. Start around midnight, t itrate 1 milliunits per minute every 1 hour. - Option of therapeutic rest per patient preference. - Elevated BP noted on admission, this is her first elevated BP. PreE labs were obtained on admission and found to be normal. UPCR is pending. No headaches, vision changes or RUQ pain. Plan continue blood pressure monitoring. If she has another elevated pressure greater than 4 hours from this 1st 1, she would meet criteria for hypertensive disorder of . Explained recommendation would be to proceed with delivery, which is ongoing with her induction. If she unrelenting headache, vision changes, right upper quadrant pain, BP >160/110 or severely abnormal labs this would be an indication for please severe features and would necessitate magnesium sulfate therapy. Patient expressed un derstanding and is agreeable to plan. - Plan to administer 8 units of NPH insulin tonight (baseline is 18U). Recommend initiation of routine glucose monitoring protocol for GDMA2, with sliding-scale insulin per protocol. - History of macrosomia. EFW 2862g at 63% on last growth US on 03/25. - Blood type O positive, type and screen on admission - GBS negative
[2025-04-16 17:22] LABS: Basophils Percent Auto 0.1 % (0.0-3.0); Eosinophils Percent Auto 1.2 % (0.0-7.0); Hematocrit 38.5 % (33.0-51.0); Hemoglobin* 12.3 gm/dL (12.0-16.0); Immature Granulocytes Pct Auto 0.5 %; Lymphocytes Percent Auto 18.5 % (20-44); Mean Corpuscular HGB Conc 32 gm/dL (32-36); Mean Corpuscular Hemoglobin 27 pg (26-34); Mean Corpuscular Volume 85 fL (80-100); Monocytes Percent Auto 7.1 % (0.0-11.0); Neutrophils Percent Auto 72.6 % (42.0-72.0); Platelet Count* 309 K/uL (140-440); RDW Coefficient of Variation % 14.9 % (11.5-15.5); Red Blood Count 4.51 m/uL (4.00-5.20); White Blood Count* 14.34 K/uL (4.50-11.00)
[2025-04-16 17:39] LABS: Alanine Aminotransferase* 12 U/L (4-35); Aspartate Amino Transferase* 22 U/L (12-35); Blood Urea Nitrogen* 10 mg/dL (5-24); Creatinine* 0.5 mg/dL (0.5-1.5); Est. Creatinine Clearance* 163.82; Estimated Glomerular Filt Rate 135 ml/min
[2025-04-16 17:43] LABS: Slide Review Reflex No
[2025-04-16 19:38] LABS: Total Protein Urine 26 mg/dL
[2025-04-16] MEDS: INSULIN NPH 100 UNIT/ML 8 UNIT SUBCUT (22:17)
[2025-04-17] VITALS (42 sets, daily range): BP systolic 104–140; BP diastolic 53–91; PULSE 72–134; RESP 16–18; TEMP 36.5–36.8; O2SAT 97–100
[2025-04-17] MEDS: LACTATED RINGERS 1000 ML 1,000 ML 124 ML IV (00:29)
[2025-04-17] MEDS: OXYTOCIN 30 unit/500 ML in NS 30 UNIT/500 ML BAG IVPB (00:30)
[2025-04-17] MEDS: LACTATED RINGERS 1000 ML 1,000 ML 112 ML IV ×2 (08:27→09:31)
[2025-04-17] MEDS: fentaNYL 250 MCG/5 ML inj 100 MCG EPIDURAL (08:45)
--- NOTE | 2025-04-17 08:56 | PM.OBPNL ---
Subjective Time Seen by Provider: 08:05 Date Seen: 04/17/25 Narrative: Subjective: The patient is somewhat uncomfortable with contractions, undecided as to what she would like to do for labor analgesia. Pitocin: 14 milliunits/minute. Verbal consent obtained for artificial rupture of membranes. Vital signs: Per electronic medical record. EFM: Baseline 160bpm, positive accelerations, no decelerations, moderate variability, reactive. Category 1. [place]: Contractions every 1-2 minutes. SVE: 5 cm/90 %/-1/posterior/soft. AROM: Clear fluid Assessment: 24-year-old 2 para 1 at 39 weeks 0 days gestation undergoing induction of labor for GDM A2 and preeclampsia without severe features Plan: 1. Continue Pitocin per labor induction protocol. May have to turn down the Pitocin after AROM as her contractions became more intense. 2. Considering epidural for labor analgesia. 3. Expect vaginal delivery. Objective Vital Signs: Last Vital Signs Temp 98 F 04/17/25 07:52 Pulse 101 H 04/17/25 07:52 Resp 18 04/17/25 06:35 BP 136/85 04/17/25 07:52 Pulse Ox 99 04/17/25 07:52
[2025-04-17] MEDS: LIDOCAINE 2% (PF) 5 ML VIAL EPIDURAL (09:04)
[2025-04-17] MEDS: ROPIVACAINE 0.2% 100 ml 100 ML 12 MG EPIDURAL (09:06)
--- NOTE | 2025-04-17 09:17 | P.ANBPRC_ITS ---
[facility] Medical History (Updated 04/16/25 @ 21:39 by Almaz Blackwood MD) Elevated blood pressure reading without diagnosis of hypertension ?R03.0 - Elevated blood-pressure reading, without diagnosis of hypertension (ICD-10) History of vaginal delivery (08/25/22) Surgical History [place] teeth removed ?K08.409 - Partial loss of teeth, unspecified cause, unspecified class (ICD- 10) Family History Family/Other Breast cancer Father Diabetes High blood pressure High cholesterol Other Stroke Social History (Updated 04/01/25 @ 13:07 by Jennifer Zhao MD) Narrative: SOCIAL Lives in [place] with and child. Education: Some college Work: Stay at home Partner: Claudio Lives with: Charissa Snyder (2 yo) Pets: 2 dogs Abuse: Denies past/present Special Diet: Denies Ok with a blood transfusion: yes Culture or muslim beliefs: denies No tobacco, ETOH or ilicit drug use. RISK FACTORS Exercise Times/wk: Walking 2-3x per week Hx of Depression and/or Anxiety/other mood disorder: no history Seat Belt Use: Routinely Smoking: Denies past/present Alcohol/day: Denies while ; socially prior to Caffeine: none Drug Use: Denies past/present Chicken Pox: Yes as a child MRSA: Denies What is your current living situation?: I presently have a place to live Problems where you live: no known problems In the past 12 months, utilities in danger of being shut off: no In past 12 months, lack of transportation kept you from medical appts, meetings, work, or getting things needed for daily living: no In the past 12 mos, have been you worried that your food would run out before you had money to buy more?: never true In the past 12 mos, the food you bought just didn't last and you didn't have money to buy more?: never true Smoking Status: Never smoker Do you use any of these nicotine containing products: None Second hand tobacco smoke exposure: No How often do you have a drink containing alcohol: never How often do you have six or more drinks on one occasion: Never AUDIT-C Alcohol total score: 0 Non-prescribed substance use: denies use How often does anyone, including family, friends and others, physically hurt you : never How often does anyone, including family, friends and others, insult or talk down to you: never How often does anyone, including family, friends and others, threaten you with harm: never How often does anyone, including family, friends and others, scream or curse at you: never Meds Home Medications and Allergies Home Medications ?Medication ?Instructions ?Recorded ?Confirmed ?Type docosahexaenoic acid 200 mg 200 mg PO DAILY 09/23/24 0 04/16/25 History capsule ( DHA) Blood Glucose Meter #1 02/13/25 04/16/25 Rx Test Strips #200 02/13/25 04/16/25 Rx lancets #200 02/13/25 04/16/25 Rx alcohol swabs (Alcohol Pads) 2 pad topical DAILY #100 03/25/25 04/16/25 Rx insulin NPH isoph U-100 human 100 18 unit (0.18 mL) cain bcut .hs #30 mL 03/25/25 04/16/25 Rx unit/mL subcutaneous suspension (Humulin N NPH U-100 Insulin (isophane susp)) insulin syringe-needle U-100 1 mL #100 03/25/2509/30 Rx 30 gauge x 5/16 (Sure Comfort Insulin Syringe) Allergies Allergy/AdvReac Type Severity Reaction Status Date / Time No Known Drug Allergies Allergy Verified 04/16/25 16:51 Results Labs Labs: Laboratory Results - last 24 hr 04/16/25 04/16/25 17:14 18:18 WBC 14.34 H RBC 4.51 Hgb 12.3 Hct 38.5 MCV 85 MCH 27 MCHC 32 RDW Coeff of Martin 14.9 Plt Count 309 Neut % (Auto) 72.6 H Lymph % (Auto) 18.5 L Sharkey % (Auto) 7.1 Eos % (Auto) 1.2 Baso % (Auto) 0.1 Neut # (Auto) 10.40 H Lymph # (Auto) 2.70 Sharkey # (Auto) 1.00 H Eos # (Auto) 0.20 Baso # (Auto) 0.00 Abs Immat Gran (auto) 0.10 Imm/Tot Granulo (auto) 0.5 BUN 10 Creatinine 0.5 Estimated Creat Clear 163.82 Estimated GFR 135 AST 22 ALT 12 Urine Creatinine 43.0 Protein/Creatinin Ratio 0.60 H Urine Total Protein 26 Blood Type O Positive Antibody Screen NEGATIVE Vital Signs Vital Signs: Last Vital Signs Temp 98 F 04/17/25 07:52 Pulse 99 04/17/25 09:12 Resp 18 04/17/25 06:35 BP 132/70 04/17/25 09:12 Pulse Ox 98 04/17/25 08:59 Weight: 123.559 kg Height: 167.64 cm Anesthesia Procedures Epidural Insertion Patient Location: OB Start Time: :45 Stop Time: :45 Start Date: 04/17/25 Stop Date: 04/17/25 Reason for Block: procedure for pain Patient Position: sitting Performed By: Deandre Alberts Preanesthetic Checklist: IV checked, risks and benefits discussed, monitors and equipment checked, pre-op evaluation, timeout performed and anesthesia consent Prep: chlorhexidine gluconate Monitoring: blood pressure monitoring, continuous pulse oximetry and heart rate Approach: midline Vertebral Space: lumbar (1-5) Epidural Technique: MARCY saline Needle Type: Tuohy needle Injection Technique: continuous catheter Needle gauge: 17 Needle Length (cm): 10 cm Needle Insertion Depth (cm): 9 Catheter Gauge: 19 Catheter Type: multi-orifice Catheter at skin depth (cm): 20 Test Dose Result: negative and lidocaine 1.5% with epinephrine 1 to 200,000
--- NOTE | 2025-04-17 09:46 | P.OBPN_ITS ---
Subjective Time Seen by Provider: 09:46 Date Seen: 04/17/25 Narrative: Subjective: Patient is comfortable w/ epidural. Pitocin: 10 milliunits/minute. Vital signs: Per electronic medical record. EFM: Baseline 140 bpm, positive accelerations, early decelerations, moderate variability. Category 2 but reassuring. [place]: Contractions every 1-2 minutes. SVE: 8 cm/100 %/0. Assessment: 24-year-old 2 para 1 at 39 weeks 0 days gestation undergoing induction of labor for GDM A2 and preeclampsia without severe features Plan: 1. Continue Pitocin per labor induction protocol. 2. Nurse just placed Patel catheter. 3. Expect vaginal delivery. 4. Blood type: O positive 5. GBS negative. Objective Vital Signs: Last Vital Signs Temp 98 F 04/17/25 07:52 Pulse 94 04/17/25 09:33 Resp 18 04/17/25 06:35 BP 122/69 04/17/25 09:33 Pulse Ox 98 04/17/25 08:59
[2025-04-17] MEDS: PHENYLEPHRINE 100 MCG/ML SYRINGE IVP ×2 (10:08→10:16)
[2025-04-17] MEDS: ePHEDrine sulfate 5 MG/ML inj 10 MG IVP (10:37)
--- NOTE | 2025-04-17 12:08 | W.PM.OBVAGDE ---
OB Procedure Vag Delivery Mother Details Mother Details: Stephanie is a 24 year-old, 2, Para 1, admitted on 04/16/25 at 38 and 6/7 Days gestation for an induction of labor due to GDM A2. After admission she was diagnosed with preeclampsia without severe features due to mild-range blood pressure and a urine protein creatinine ratio of 0.5. She had a Cook catheter placed on the evening of 04/16/2025 fell out at approximately 9:00 p.m. Pitocin was then started at approximately midnight on 04/17/2025. Artificial rupture of membranes took place at 8:10 a.m. on 04/17/2025, clear fluid. At that time her Pitocin was 14 milliunits/minute her contractions became closer together and more painful her Pitocin was decreased to 10 milliunits/minute and she asked for an epidural for labor analgesia. After the epidural was placed Pitocin was then decreased to 7 milliunits/minute : 2 Weeks Gestation: 39 Admission Date: 04/16/25 Additional Details Amniotic Membrane Status: AROM Amniotic Membrane Rupture Date: 04/17/25 Amniotic Membrane Rupture Time: 08:10 Amniotic Membrane Fluid Description: Clear Analgesia/Anesthesia Type: Epidural Waterbirth: No Pitcoin: Yes Induction Method: Intracervical balloon catheter, per pitocin protocol and AROM Labor Onset: 08:10 Complete: 11:16 Pushin:21 Heart: heart tones during second stage were category 2 with short, less than 15 seconds, variable decelerations during contractions. Immediate return to baseline with moderate variability in between contractions. Reassuring. Delivery Details Delivery Date: 04/17/25 Delivery Time: 11:37 Route of delivery: Gender: Male Infant Viability: Alive; Heart Rate Present Position at Delivery: OA Delivery Details: Karen delivered a live male from the direct OA position over an intact perineum 11:37 a.m. was placed on maternal abdomen.? Cord was clamped and cut after a+60 second delay. Nose and mouth were bulb suctioned.? Infant weight pending. Apgars were 8 at 1 minute, 9 at 5 minutes. There was a double, loose nuchal cord that was easily reduced prior to delivery the infant's shoulders. No shoulder dystocia. No lacerations. 1 Minute Interval Total Score: 8 5 Minute Interval Total Score: 9 Additional Details Shoulder Dystocia: No Placenta Delivery Time: 11:45 Placental Delivery Description: Spontaneous Blood Loss: 100 Laceration: None Blood Loss Measurement Type: QBL Bakri Used: No Sponge/Need Count Correct: Yes Cord Vessel Description: 3 Vessels Event Summary Status: Mother and infant were stable after delivery. Stephanie is planning on breast feeding. Infant's name: Enmanuel
[2025-04-17] MEDS: ACETAMINOPHEN 500 MG TABLET 1000 MG PO (15:33)
[2025-04-17] MEDS: IBUPROFEN 600 MG TABLET PO (18:46)
[2025-04-18 00:02] VITALS: BP 121/74; PULSE 88; RESP 18; TEMP 36.7; O2SAT 98
[2025-04-18] MEDS: IBUPROFEN 600 MG TABLET PO ×2 (00:41→06:57)
[2025-04-18] MEDS: ACETAMINOPHEN 500 MG TABLET 1000 MG PO (04:13)
[2025-04-18 04:20] VITALS: BP 121/77; PULSE 88; RESP 16; TEMP 36.4; O2SAT 98
[2025-04-18 07:05] LABS: Hemoglobin* 10.1 gm/dL (12.0-16.0)
[2025-04-18 08:15] VITALS: BP 118/78; PULSE 92; RESP 16; TEMP 36.5; O2SAT 99
--- NOTE | 2025-04-18 08:15 | P.DS_ITS ---
DS: Providers Provider Date Seen: 04/18/25 Date of admission: 04/16/25 16:29 Primary care physician: Not a Local Provider Admitting Clinician: Almaz Blackwood MD Attending Physician on discharge: Migdalia Porter APRN, CNM DS: Diagnosis Discharge Diagnosis (1) care and examination immediately after delivery: Status: Acute (2) Gestational diabetes mellitus, class A2: Status: Acute (3) Preeclampsia: Status: Acute (4) Lactating mother: Status: Acute Exam Narrative: Exam Narrative: GENERAL APPEARANCE:? normal affect, alert, no distress MOOD:? appropriate CHEST:? clear to auscultation HEART:? regular rate and rhythm ABDOMEN:? soft, non-tender the uterine fundus is At Umbilicus, Midline and is appropriate for the stage of recovery. PERINEUM:? mild edema of the perineum. EXTREMITIES:? normal and no edema Const: Vital Signs, click to edit/add: Vital Signs - 24 hr 04/17/25 08:58 04/17/25 08:59 04/17/25 08:59 Temperature 98.2 F Pulse Rate 100 103 H Pulse Rate [Pulse Oximeter] Respiratory Rate Blood Pressure 116/74 127/84 Blood Pressure [Ri ght Arm] Pulse Oximetry 98 Oxygen Delivery Me thod 04/17/25 09:04 04/17/25 09:05 04/17/25 09:07 Temperature Pulse Rate 95 97 106 H Pulse Rate [Pulse Oximeter] Respiratory Rate Blood Pressure 137/83 130/72 138/74 Blood Pressure [Ri ght Arm] Pulse Oximetry Oxygen Delivery Me thod 04/17/25 09:12 04/17/25 09:18 04/17/25 09:33 Temperature Pulse Rate 99 96 94 Pulse Rate [Pulse Oximeter] Respiratory Rate Blood Pressure 132/70 129/75 122/69 Blood Pressure [Ri ght Arm] Pulse Oximetry Oxygen Delivery Me thod 04/17/25 09:49 04/17/25 10:04 04/17/25 10:14 Temperature Pulse Rate 87 86 85 Pulse Rate [Pulse Oximeter] Respiratory Rate Blood Pressure 114/55 L 104/53 L 110/53 L Blood Pressure [Ri ght Arm] Pulse Oximetry Oxygen Delivery Me thod 04/17/25 10:19 04/17/25 10:24 04/17/25 10:29 Temperature Pulse Rate 84 72 82 Pulse Rate [Pulse Oximeter] Respiratory Rate Blood Pressure 108/62 112/58 L 112/62 Blood Pressure [Ri ght Arm] Pulse Oximetry Oxygen Delivery Va thod 04/17/25 10:34 04/17/25 10:39 04/17/25 10:44 Temperature Pulse Rate 88 90 94 Pulse Rate [Pulse Oximeter] Respiratory Rate Blood Pressure 111/60 109/59 L 113/59 L Blood Pressure [Ri ght Arm] [facility] 10:49 04/17/25 10:54 04/17/25 11:12 Temperature Pulse Rate 97 100 102 H Pulse Rate [Pulse Oximeter] Respiratory Rate Blood Pressure 120/67 127/62 121/71 Blood Pressure [Ri ght Arm] Pulse Oximetry [facility] 04/17/25 11:27 04/17/25 11:56 04/17/25 11:56 Temperature 98 F Pulse Rate 113 H 114 H Pulse Rate [Pulse Oximeter] Respiratory Rate Blood Pressure 133/85 138/74 Blood Pressure [Ri ght Arm] Pulse Oximetry [facility] 04/17/25 12:11 04/17/25 12:11 04/17/25 12:26 Temperature 98 F Pulse Rate 134 H 111 H Pulse Rate [Pulse Oximeter] Respiratory Rate Blood Pressure 139/79 136/68 Blood Pressure [Ri ght Arm] Pulse Oximetry [facility] 04/17/25 12:26 04/17/25 12:41 04/17/25 12:56 Temperature 98.3 F Pulse Rate 104 H 109 H Pulse Rate [Pulse Oximeter] Respiratory Rate Blood Pressure 126/62 118/64 Blood Pressure [Ri ght Arm] Pulse Oximetry Oxygen Delivery Va thod 04/17/25 12:56 04/17/25 13:26 04/17/25 13:26 Temperature 98 F 97.9 F Pulse Rate 114 H Pulse Rate [Pulse Oximeter] Respiratory Rate Blood Pressure 133/73 Blood Pressure [Ri ght Arm] Pulse Oximetry Oxygen Delivery Va thod 04/17/25 13:41 04/17/25 13:41 04/17/25 13:56 Temperature 98 F Pulse Rate 115 H 122 H Pulse Rate [Pulse Oximeter] Respiratory Rate Blood Pressure 132/75 137/68 Blood Pressure [Ri ght Arm] Pulse Oximetry [facility] 04/17/25 15:42 04/17/25 20:00 04/17/25 20:15 Temperature 98.1 F 97.7 F Pulse Rate Pulse Rate [Pulse Oximeter] 101 H 87 Respiratory Rate 16 16 Blood Pressure Blood Pressure [Ri ght Arm] 124/83 140/91 H 131/83 Pulse Oximetry 98 98 Oxygen Delivery Me thod Room Air Room Air 04/18/25 00:02 04/18/25 04:20 Temperature 98.0 F 97.6 F Pulse Rate Pulse Rate [Pulse Oximeter] 88 88 Respiratory Rate 18 16 Blood Pressure Blood Pressure [Ri ght Arm] 121/74 121/77 Pulse Oximetry 98 98 Oxygen Delivery Me thod Room Air OB - DS: Summary Hospital Course Hospital Course: Stephanie is a 24 y.o. G 2 P 2 who was admitted to [facility] for IOL for GDMA2. She was diagnosed with Pre-e without SF during labor.?She had a NVD that was uncomplicated. The patient feels well. ?The pain is well controlled with current medications. ?She has no new complaints. She is breast feeding and reports things are going well. the patient has done well.? Vitals have been stable.? She has remained afebrile.? Has a good appetite, is tolerating a general diet. ?She is voiding without difficulty.? She is passing gas and has not had a bowel movement.? She is ambulating and denies any dizziness.? Has small amount of rubra lochia. She is planning partner to get a vasectomy prevention. Problems: Mild anemia Discharge home with baby.? Follow up in 2 weeks and 6 weeks.? , may see if needed? Hgb 10.1.? GDM. Plans to do 2 hour gct at 6 week visit. Pre-e diagnosed by elevated BP greater than 4 hours apart? Labs WNL Discharge home with BP cuff if does not already have one? Follow up in 3-5 days? Call for signs/symptoms of preeclampsia? For pain control of perineum, breast and pelvic pain, take 600 mg Ibuprofen every 6 hours as needed by mouth or 1000 mg acetaminophen (Tylenol) every 6 hours by mouth as needed. You can alternate these so you are taking something every 3 hours as needed. A heating pad can also be used for your abdomen or breasts. You may also take docusate sodium up to twice daily to soften your stools and help to prevent constipation. You may wean off of it when your stools return to normal.? Peripartum Data Infant delivery method: Vaginal Laceration description: None [place] Infant Gender: Male Infant Discharge Plan: Home Status at Discharge Functional status at discharge: independent ambulation Overall status at discharge: patient is progressing back to baseline Time Spent with Patient Time attestation: Total time spent providing and/or coordinating discharge services: Discharge Plan Discharge Disposition: Home, Self-Care Date of Admission: 04/16/25 16:29 Attending Provider on Discharge: Migdalia Porter Consulting Providers: Jennifer Salgado Primary Care Provider: Provider,Not a Local Condition: Stable Anticipated Discharge Date/Time: 04/18/25 12:00 Discharge Medications: New docusate sodium 100 mg Capsule 100 mg PO BID PRNQty: 90 0RF ibuprofen 600 mg Tablet 600 mg PO Q6H PRNQty: 60 0RF acetaminophen 500 mg Tablet 1,000 mg PO Q6H PRNQty: 0 0RF Continued DHA 200 mg capsule 200 mg PO DAILY Discontinued (DME) insulin syringe-needle U-100 [Sure Comfort Insulin Syringe] 1 mL 30 gauge x 5/16 syringe See Rx Instructions .ROUTE .MEDSUPPLY Qty: 100 3RF Rx Instructions: As directed Humulin N NPH U-100 Insulin 100 unit/mL suspension 18 unit subcut .hs Qty: 30 1RF alcohol swabs [Alcohol Pads] Pads, Medicated 2 pad topical DAILY Qty: 100 1RF (DME) Test Strips Misc See Rx Instructions .MEDSUPPLY Qty: 200 3RF Rx Instructions: Test blood sugar 4 times daily. (DME) Blood Glucose Meter Misc See Rx Instructions .MEDSUPPLY Qty: 1 0RF Rx Instructions: As directed (DME) lancets Misc See Rx Instructions .MEDSUPPLY Qty: 200 3RF Rx Instructions: Test blood sugar 4 times daily. Discharge Orders: Discharge Order (Routine); Ordered 04/18/25 Ordered By: Migdalia Porter Patient Education: OB Over the Counter Medication Information, OB Vaginal/Breast Feeding Additional Instructions: Discharge instructions were reviewed with the patient including signs and symptoms of infection and home going medications Nothing vaginally for 6 weeks: no tampons or intercourse Off Work or School for 6 weeks Follow [facility] for a BP check?3-5 days * Call with any BP greater than or equal to 160/110 or sustained BP of greater than or equal 140/90 * Severe headache that doesn't improve after taking medications * Changes in vision, including temporary loss of vision, blurred vision, and/or light sensitivity * Upper abdominal pain (usually under ribs on the right side) 2-week visit: discuss infant feeding concerns, review control options and screen for anxiety/depression. 6-week visit for an annual exam with 2 hour glucose tolerance test. consultation services are available to all mothers and babies for the first year after delivery.? To make an appointment, please call [phone]. Activity Level: Activity as Tolerated and No strenuous activity Discharge Diet: Regular Follow Up Appointments: [facility] [Provider Group] Forms: ZEB Info Instructions
[2025-04-18] MEDS: DOCUSATE SODIUM 100 MG CAPSULE PO (08:27)
--- NOTE | 2025-04-18 10:44 | PM.ANPOST ---
Post Anesthesia Note Post Anesthesia Note Patient seen: Inpatient Respiratory Status: adequate Cardiovascular Status: adequate Mental Status: baseline Pain: adequate Temp: baseline Anesthetic awareness: N/A Complications: none Follow care: none
[2025-04-18 13:44] VITALS: BP 140/89; PULSE 103; RESP 16; TEMP 36.7; O2SAT 97
[2025-04-18 14:00] VITALS: BP 130/85; PULSE 93
== END 2025-04-18 15:07 | disposition home or self-care (01) | DRG 807 ==
PROVIDERS: Obstetrics & Gynecology; Admitting Provider Obstetrics & Gynecology; Visit Provider Obstetrics & Gynecology
DX: O14.04 Mild to moderate pre-eclampsia, complicating childbirth (principal); Z37.0 Single live birth; O24.424 Gestational diabetes mellitus in childbirth, insulin controlled; O99.214 Obesity complicating childbirth; Z3A.38 38 weeks gestation of pregnancy
CPT/HCPCS: 01967; 36415; 59200; 82565; 82570; 84156; 84450; 84460; 84520; 85018; 85025; 86850; 86900; 86901; 88307; A9270; C1726; J2795; J3010; J7120

== ENCOUNTER 2025-04-21 23:32 | Emergency (ER) | payer MEDICAID, SELFPAY ==
[2025-04-21 23:36] VITALS: BP 150/92; PULSE 97; RESP 18; TEMP 36.9; O2SAT 99; BMI 42.1
[2025-04-21 23:45] VITALS: BP 154/106
[2025-04-21 23:47] VITALS: BP 146/90
[2025-04-22] VITALS (11 sets, daily range): BP systolic 124–142; BP diastolic 74–88; PULSE 90–102; O2SAT 96–98
--- NOTE | 2025-04-22 00:06 | ED_ITS ---
HPI - General Adult General Chief complaint: Hypertension Stated complaint: high blood pressure Time Seen by Provider: 04/21/25 23:33 Source: patient Mode of arrival: ambulatory Limitations: no limitations History of Present Illness HPI narrative: 24-year-old female 4 days presents to the emergency department with headache and elevated blood pressure. Blood pressures were borderline elevated for the last 2 weeks of her , was induced at 39 weeks gestation due to elevated blood pressures. There was no indication of preeclampsia. Patient was discharged home with a blood pressure cuff and advised to monitor. She says that her blood pressures have been kind of running about 130/80 the last few days. Tonight at around 10:00 p.m. she started noticing a mild headache and blood pressure was elevated higher. She called the OB team on-call and was advised to come into the emergency department. No focal neurological changes. She has no distal bit of swelling in the legs and says that her fingers feel tight. Is still urinating normally. Reports that her vaginal bleeding is pretty typical. This is her 2nd baby. Does not have a history of cardiomyopathy, preeclampsia or other complication from prior pregnancies. She was not discharged on any medication besides the usual Tylenol, ibuprofen and stool softener. She is . No focal neurological changes, no right upper quadrant pain. No mental status changes. No chest pain or significant shortness of breath. Discharge summary and inpatient labs reviewed. Past medical history notable for obesity, -induced hypertension in this . No pertinent surgical history. Nonsmoker. ROS is notable for the generalized symptoms as described above, otherwise denies times 12 systems. Related Data Home Medications ?Medication ?Instructions ?Recorded ?Confirmed docosahexaenoic acid 200 mg 200 mg PO DAILY 09/23/24 0 04/21/25 capsule ( DHA) Previous Rx's ?Medication ?Instructions ?Recorded acetaminophen 500 mg tablet 1,000 mg (2 x 500 mg) PO Q 6H PRN 04/18/25 #0 tabs docusate sodium 100 mg capsule 100 mg PO BID PRN #90 c aps 04/18/25 ibuprofen 600 mg tablet 600 mg PO Q6H PRN #60 tabs 0 04/18/25 Allergies Allergy/AdvReac Type Severity Reaction Status Date / Time No Known Drug Allergies Allergy Verified 04/16/25 16:51 [facility] Medical History Elevated blood pressure reading without diagnosis of hypertension ?R03.0 - Elevated blood-pressure reading, without diagnosis of hypertension (ICD-10) History of vaginal delivery (08/25/22) Surgical History [place] teeth removed ?K08.409 - Partial loss of teeth, unspecified cause, unspecified class (ICD- 10) Family History Family/Other Breast cancer Father Diabetes High blood pressure High cholesterol Other Stroke Social History Narrative: SOCIAL Lives in [place] with and child. Education: Some college Work: Stay at home Partner: Claudio Lives with: Charissa Snyder (2 yo) Pets: 2 dogs Abuse: Denies past/present Special Diet: Denies Ok with a blood transfusion: yes Culture or pentecostalism beliefs: denies No tobacco, ETOH or ilicit drug use. RISK FACTORS Exercise Times/wk: Walking 2-3x per week Hx of Depression and/or Anxiety/other mood disorder: no history Seat Belt Use: Routinely Smoking: Denies past/present Alcohol/day: Denies while ; socially prior to Caffeine: none Drug Use: Denies past/present Chicken Pox: Yes as a child MRSA: Denies What is your current living situation?: I presently have a place to live Problems where you live: no known problems In the past 12 months, utilities in danger of being shut off: no In past 12 months, lack of transportation kept you from medical appts, meetings, work, or getting things needed for daily living: no In the past 12 mos, have been you worried that your food would run out before you had money to buy more?: never true In the past 12 mos, the food you bought just didn't last and you didn't have money to buy more?: never true Smoking Status: Never smoker Do you use any of these nicotine containing products: None Second hand tobacco smoke exposure: No How often do you have a drink containing alcohol: never How often do you have six or more drinks on one occasion: Never AUDIT-C Alcohol total score: 0 Non-prescribed substance use: denies use How often does anyone, including family, friends and others, physically hurt you : never How often does anyone, including family, friends and others, insult or talk down to you: never How often does anyone, including family, friends and others, threaten you with harm: never How often does anyone, including family, friends and others, scream or curse at you: never service: No Exam Const: Vital Signs, click to edit/add: Vital Signs - 24 hr 04/21/25 23:36 04/21/25 23:45 04/21/25 23:47 Temperature 98.5 F Pulse Rate Pulse Rate [Right Pulse Oximeter] 97 Respiratory Rate 18 Blood Pressure 154/106 H 146/90 H Blood Pressure [Ri ght Upper Arm] 150/92 H Pulse Oximetry 99 Oxygen Delivery Me thod Room Air 04/22/25 00:02 04/22/25 00:02 04/22/25 00:02 Temperature Pulse Rate Pulse Rate [Right Pulse Oximeter] Respiratory Rate Blood Pressure 135/88 135/88 135/88 Blood Pressure [Ri ght Upper Arm] Pulse Oximetry Oxygen Delivery Me thod 04/22/25 00:10 04/22/25 00:15 04/22/25 00:16 Temperature Pulse Rate 90 101 H Pulse Rate [Right Pulse Oximeter] Respiratory Rate Blood Pressure 142/88 H Blood Pressure [Ri ght Upper Arm] Pulse Oximetry 97 98 Oxygen Delivery Me thod 04/22/25 00:30 04/22/25 00:32 04/22/25 00:45 Temperature Pulse Rate 93 97 97 Pulse Rate [Right Pulse Oximeter] Respiratory Rate Blood Pressure 127/74 Blood Pressure [Ri ght Upper Arm] Pulse Oximetry 98 97 97 Oxygen Delivery Me thod 04/22/25 00:47 Temperature Pulse Rate 97 Pulse Rate [Right Pulse Oximeter] Respiratory Rate Blood Pressure 124/82 Blood Pressure [Ri ght Upper Arm] Pulse Oximetry 96 Oxygen Delivery Me thod Documenting provider has reviewed patient's vital signs: yes Common normals: no apparent distress and alert General appearance: cooperative, comfortable and well kempt HENMT: Common normals: normocephalic and moist oral mucous membranes Head and scalp: normocephalic Mouth: oral and palatal mucosa normal Throat: posterior oropharynx normal Eye: Common normals: conjunctivae normal General eye: normal appearance of both eyes Conjunctiva: conjunctiva(e) normal Neck & C-Spine: Common normals: full ROM and no lymphadenopathy General: normal visual inspection Resp: Common normals: normal respiratory effort, no use of accessory muscles and clear to auscultation bilaterally Effort & inspection: able to speak in complete sentences Auscultation: clear to auscultation bilaterally Cardio: Common normals: regular rate, regular rhythm, S1 normal heart sound, S2 normal heart sound and no murmurs Rate: regular rate Rhythm: regular rhythm Heart sounds: S1 normal and S2 normal GI: Common normals: Normal to inspection, nondistended, normoactive bowel sounds present, soft to palpation, non-tender, no hepatosplenomegaly and no masses Palpation: soft and no hepatosplenomegaly Other: Fundus firm, 3 cm below umbilicus. Extremity: Other: Trace edema. Neuro: Sensorium/orientation: alert Speech: speech normal Motor exam: strength 5/5 throughout and no movement abnormalities noted Psych: Appearance: well kempt Attitude: engaged Activity/motor behavior: appropriate eye contact Mood and affect: euthymic mood Attention/dania ntration: attention grossly intact Insight: insight good Judgement: judgment good Skin: Common normals: no rashes or lesions noted General skin exam: no rashes or lesions noted Course Course ED Course: 24-year-old female with elevated blood pressure , now running higher than baseline and experiencing mild headache. Concern for possible preeclampsia or other post complication. Will obtain EKG, typical preeclampsia labs and contact Ob provider. Blood pressure 150 over 90s in triage but is now 140/90 at 15 minute check. No obvious red flags for cardiomyopathy, stroke or other alarming symptoms on initial assessment. Await findings. Reevaluation(s) Time of Reevaluation #1: 01:04 Reevaluation #1: Reviewed lab findings and blood pressure readings with obstetrical provider. Second blood pressure was 146/90, then 135/88, then 124/82, and now 128/86. Patient is feeling well. Certainly no worsening and the headache is doing better. AST is mildly elevated, not necessarily out of character for obesity but higher than during the . Ob provider agrees that patient can safely be discharged, no additional interventions. Continue checking blood pressure 3 times daily, keep her upcoming video visit later today with the midw harinder team. She will likely have her come in later this week to repeat labs. All questions answered, written instructions provided. Vital Signs Vital signs: Initial Vital Signs Temperature 98.5 F 04/21/25 23:36 Temperature Source Temporal Artery Scan 04/21/25 23:36 Pulse Rate 97 04/21/25 23:36 Respiratory Rate 18 04/21/25 23:36 Blood Pressure 150/92 H 04/21/25 23:36 Blood Pressure Mean 111 H 04/21/25 23:36 Blood Pressure Position Sitting 04/21/25 23:36 Pulse Oximetry 99 04/21/25 23:36 Oxygen Delivery Method Room Air 04/21/25 23:36 Vital Signs Temperature 98.5 F 04/21/25 23:36 Pulse Rate 97 04/21/25 23:36 Respiratory Rate 18 04/21/25 23:36 Blood Pressure 150/92 H 04/21/25 23:36 Pulse Oximetry 99 04/21/25 23:36 Oxygen Delivery Method Room Air 04/21/25 23:36 Temperature 98.5 F 04/21/25 23:36 Pulse Rate 97 04/22/25 00:47 Respiratory Rate 18 04/21/25 23:36 Blood Pressure 124/82 04/22/25 00:47 Pulse Oximetry 96 04/22/25 00:47 Oxygen Delivery Method Room Air 04/21/25 23:36 Medical Decision Making Lab Data Lab results reviewed: Yes I reviewed the patient's lab results Lab results narrative: AST mildly elevated, not terribly uncharacteristic for someone with obesity but remainder of labs are quite reassuring. Hemoglobin is improving, no signs of thrombocytopenia. Labs: Lab Results 04/22/25 04/22/25 Range/Units 00:00 00:20 WBC 14.38 H (4.50-11.00) K/uL RBC 4.26 (4.00-5.20) m/uL Hgb 11.7 L (12.0-16.0) gm/dL Hct 37.3 (33.0-51.0) % MCV 88 (80-100) fL MCH 28 (26-34) pg MCHC 31 L (32-36) gm/dL RDW Coeff of Martin 15.3 (11.5-15.5) % Plt Count 322 (140-440) K/uL Neut % (Auto) 66.0 (42.0-72.0) % Lymph % (Auto) 21.3 (20-44) % Cowley % (Auto) 7.4 (0.0-11.0) % Eos % (Auto) 3.8 (0.0-7.0) % Baso % (Auto) 0.2 (0.0-3.0) % Neut # (Auto) 9.50 H (1.7-7.0) K/uL Lymph # (Auto) 3.10 H (0.90-2.90) K/uL Cowley # (Auto) 1.10 H (0.00-0.90) K/UL Eos # (Auto) 0.50 (0.00-0.50) K/uL Baso # (Auto) 0.00 (0.00-0.30) K/uL Abs Immat Gran (auto) 0.20 (0.00-0.30) K/uL Imm/Tot Granulo (auto) 1.3 % Sodium 135 (135-149) mmol/L Potassium 4.1 (3.6-5.1) mmol/L Chloride 104 (96-114) mmol/L Carbon Dioxide 25 (20-32) mmol/L Anion Gap 6 L (7-15) mEq/L BUN 12 (5-24) mg/dL Creatinine 0.5 (0.5-1.5) mg/dL Estimated Creat Clear 163.82 Estimated GFR 135 ml/min Glucose 98 (60-115) mg/dL Calcium 9.6 (8.4-10.6) mg/dL Total Bilirubin 0.3 (0.1-1.5) mg/dL Direct Bilirubin 0.1 (0.0-0.5) mg/dL AST 32 (12-35) U/L ALT 40 H (4-35) U/L Alkaline Phosphatase 99 (40-150) U/L Total Protein 6.6 (6.0-8.3) g/dL Albumin 3.7 (3.3-5.0) g/dL Urine Color Yellow (Yellow) Urine Appearance Clear (Clear) Urine pH 7.0 (5.0-8.5) Ur Specific [place] 1.010 (1.000-1.030) Urine Protein Negative (Negative) Urine Glucose (UA) Negative (Negative) Urine Ketones Negative (Negative) Urine Blood 2+ A (Negative) Urine Nitrite Negative (Negative) Urine Bilirubin Negative (Negative) Urine Urobilinogen 0.2 (0.2-1.0) Ur Leukocyte Esterase Negative (Negative) Urine RBC 0-2 (0-2) Urine WBC 0-2 (0-5) Ur Squamous Epith Cells Few (None-Few) Urine Bacteria None (None) ECG Data Attestation: I personally reviewed and interpreted this ECG as follows: Prior ECG tracings: not available for review Interpretation: Sinus rhythm with a rate of 95. Normal intervals and axis. No significant ST or T-wave abnormalities. Normal EKG. Discharge Plan Discharge Clinical Impression: Elevated blood pressure reading Patient Disposition: Home, Self-Care Condition: Improved Instructions: Hypertension During (ED) Additional Instructions: As we discussed, your blood pressure is mildly elevated but thankfully not at a point that needs to be treated yet. Sometimes elevated blood pressure can be a signal of a more dangerous complication like preeclampsia. Thankfully, your labs are looking pretty good. Your blood pressure has fallen down to the normal range but unfortunately it will fluctuate quite a bit for you over the next few days. Keep your video visit as planned today. Keep checking her blood pressure at least 3 times daily and recording these. Your electrician crane maintenance will want to go over these results with you at the video visit. They will likely have you come back and double check labs later in the week to ensure that things are not worsening. If you have neurological changes, severe shortness of breath, chest pain or other signs of complication, please return to the emergency department or contact your obstetrical team. Activity Level: Activity as Tolerated Discharge Diet: Regular Prescriptions: No Action DHA 200 mg capsule 200 mg PO DAILY acetaminophen 500 mg Tablet 1,000 mg PO Q6H PRNQty: 0 0RF docusate sodium 100 mg Capsule 100 mg PO BID PRNQty: 90 0RF ibuprofen 600 mg Tablet 600 mg PO Q6H PRNQty: 60 0RF Follow Up/Referrals: Provider,Not a Local [Primary Care Provider, Family Practice] Stand Alone Forms: Opara Info Instructions
[2025-04-22 00:15] LABS: Appearance Urine Clear (Clear); Bilirubin Urine Negative (Negative); Blood Urine 2+ (Negative); Color Urine Yellow (Yellow); Glucose Urine Negative (Negative); Ketones Urine Negative (Negative); Leukocyte Esterase Urine Negative (Negative); Nitrite Urine Negative (Negative); Protein Urine Negative (Negative); Urobilinogen Urine 0.2 (0.2-1.0)
[2025-04-22 00:25] LABS: Basophils Percent Auto 0.2 % (0.0-3.0); Eosinophils Percent Auto 3.8 % (0.0-7.0); Hematocrit 37.3 % (33.0-51.0); Hemoglobin* 11.7 gm/dL (12.0-16.0); Immature Granulocytes Pct Auto 1.3 %; Lymphocytes Percent Auto 21.3 % (20-44); Mean Corpuscular HGB Conc 31 gm/dL (32-36); Mean Corpuscular Hemoglobin 28 pg (26-34); Mean Corpuscular Volume 88 fL (80-100); Monocytes Percent Auto 7.4 % (0.0-11.0); Platelet Count* 322 K/uL (140-440); RDW Coefficient of Variation % 15.3 % (11.5-15.5); Red Blood Count 4.26 m/uL (4.00-5.20); White Blood Count* 14.38 K/uL (4.50-11.00)
[2025-04-22 00:26] LABS: Slide Review Reflex No
[2025-04-22 00:32] LABS: RBC Urine 0-2 (0-2); Squamous Epithelial Cell Urine Few (None-Few); WBC Urine 0-2 (0-5)
[2025-04-22 00:38] LABS: Albumin* 3.7 g/dL (3.3-5.0); Chloride* 104 mmol/L (96-114); Potassium* 4.1 mmol/L (3.6-5.1); Sodium* 135 mmol/L (135-149)
[2025-04-22 00:40] LABS: Blood Urea Nitrogen* 12 mg/dL (5-24); Creatinine* 0.5 mg/dL (0.5-1.5); Est. Creatinine Clearance* 163.82; Estimated Glomerular Filt Rate 135 ml/min
[2025-04-22 00:41] LABS: Alanine Aminotransferase* 40 U/L (4-35); Alkaline Phosphatase* 99 U/L (40-150); Anion Gap 6 mEq/L (7-15); Aspartate Amino Transferase* 32 U/L (12-35); Bilirubin Direct* 0.1 mg/dL (0.0-0.5); Bilirubin Total* 0.3 mg/dL (0.1-1.5); Calcium* 9.6 mg/dL (8.4-10.6); Carbon Dioxide* 25 mmol/L (20-32); Glucose* 98 mg/dL (60-115); Total Protein* 6.6 g/dL (6.0-8.3)
== END 2025-04-22 01:15 | disposition home or self-care (01) ==
PROVIDERS: Emergency Provider Family Medicine
DX: R51.9 Headache, unspecified (principal); R03.0 Elevated blood-pressure reading, without diagnosis of hypertension
CPT/HCPCS: 36415; 80048; 80076; 81001; 81003; 85025; 93005; 99284

== ENCOUNTER 2025-04-23 13:46 | Outpatient (CLI) | payer MEDICAID, SELFPAY | END 2025-04-23 13:47 | disposition home or self-care (01) | LOC: NFLDREF 04-27 02:13 | PROVIDERS: Visit Provider Obstetrics & Gynecology | DX: O24.419 Gestational diabetes mellitus in pregnancy, unspecified control (principal); O14.93 Unspecified pre-eclampsia, third trimester; O99.213 Obesity complicating pregnancy, third trimester; Z3A.39 39 weeks gestation of pregnancy | CPT/HCPCS: 82565; 84450; 84460; 84520 ==

== ENCOUNTER 2025-04-29 10:04 | Outpatient (CLI) | payer MEDICAID, SELFPAY | END 2025-04-29 10:05 | disposition home or self-care (01) | PROVIDERS: Visit Provider Registered Nurse | DX: Z39.2 Encounter for routine postpartum follow-up (principal) | CPT/HCPCS: 82565; 84450; 84460 ==

== ENCOUNTER 2025-04-29 10:06 | Outpatient (CLI) | payer MEDICAID, SELFPAY ==
--- NOTE | 2025-04-29 10:15 | CRLHL7_ITS ---
For Patients: As a result of the Cures Act, medical imaging exams and procedure reports are released immediately into your electronic medical record. You may view this report before your referring provider. If you have questions, please contact your health care provider. Indication: LEFT AXILLA LOCALIZED SWELLING, MASS, AND LUMP Technique: Grayscale and color Doppler ultrasound imaging of the left axillary soft tissues performed. Comparison: None Findings: Normal subcutaneous tissues are present. No abscess or adenopathy. No abnormal vascularity. Impression: No suspicious findings. Dictated by Dio Flynn MD @ 04/29/2025 10:44:04 AM (Electronically Signed)
== END 2025-04-29 10:07 | disposition home or self-care (01) ==
LOC: US 10:06
PROVIDERS: Visit Provider Obstetrics & Gynecology
DX: R22.30 Localized swelling, mass and lump, unspecified upper limb (principal)
CPT/HCPCS: 76882